=== PATIENT | male | born 1960 | race Caucasian/White ===

== ENCOUNTER 2020-12-09 21:00 | Inpatient (IN) | payer MEDICARE, OTHER ==
[~2020-12-09] VITALS: Ht 165.1 cm; Wt 86.8 kg
[2020-12-10 00:51] LABS: BASOPHIL 0.7 % (0-2); HCT 47.4 % (42.0-52.0); HGB 16.1 g/dl (13.2-18.0); LYMPHOCYTE 25.3 % (15-48); MCH 31.1 pg (25.0-31.0); MCV 91.7 fL (78.0-100.0); MONOCYTE 8.5 % (0-12); MPV 9.4 fL (6.0-9.5); NEUTROPHIL 62.2 % (41-80); NRBC 0; PLT 258 K/uL (150-400); RBC 5.17 M/uL (4.70-6.00); RDW 12.7 % (11.5-14.0); WBC 4.5 K/uL (4.0-10.5)
[2020-12-10 01:10] LABS: ALBUMIN 3.4 g/dL (3.4-5.0); BILIRUBIN - TOTAL 0.3 mg/dL (0.2-1.0); CREATININE 4.44 mg/dL (0.67-1.17); GLOBULIN (CALCULATION) 4.6 g/dL; POTASSIUM 3.8 mmol/L (3.5-5.1)
[2020-12-10 14:11] LABS: BILIRUBIN - TOTAL 0.2 mg/dL (0.2-1.0); CREATININE 3.4 mg/dL (0.67-1.17); GLOBULIN (CALCULATION) 4.1 g/dL; POTASSIUM 3.6 mmol/L (3.5-5.1); TOTAL PROTEIN 7.1 g/dL (6.4-8.2)
--- NOTE | 2020-12-10 14:41 | NUR ---
[address] HASKINS ABOUT HOME MEDS: ATTEMPTED TO CALL THE PATIENT'S PHARMACY [facility] IN [place], [place] [phone] WITH NO ANSWER WILL TRY AGAIN TOMMORROW THE PATIENT DOESNOT KNOW HIS MEDICATIONS. NO FAMILY HERE.
[2020-12-11 07:03] LABS: BASOPHIL 0.7 % (0-2); EOSINOPHIL 1.9 % (0-5); HCT 42.8 % (42.0-52.0); HGB 14.9 g/dl (13.2-18.0); MCH 31.2 pg (25.0-31.0); MCHC 34.8 g/dL (32.0-36.0); MCV 89.7 fL (78.0-100.0); MONOCYTE 7.7 % (0-12); MPV 9.2 fL (6.0-9.5); NEUTROPHIL 59.5 % (41-80); NRBC 0; PLT 267 K/uL (150-400); RBC 4.77 M/uL (4.70-6.00); RDW 12.7 % (11.5-14.0)
[2020-12-11 07:06] LABS: WBC 4.2 K/uL (4.0-10.5)
[2020-12-11 07:34] LABS: CREATININE 1.57 mg/dL (0.67-1.17); POTASSIUM 3.9 mmol/L (3.5-5.1)
== END 2020-12-11 12:45 | disposition home or self-care (01) | DRG 682 ==
LOC: FER 21:00 → FMS 12-10 03:35
PROVIDERS: Allergy & Immunology Allergy; Emergency Medicine; Nurse Practitioner; ADMIT Internal Medicine
PROC: 8E0ZXY6 Isolation (ICD-10-PCS; principal; 2020-12-10)
DX: N17.9 Acute kidney failure, unspecified (principal); U07.1 COVID-19; E86.0 Dehydration; E11.9 Type 2 diabetes mellitus without complications; E03.9 Hypothyroidism, unspecified; Z66 Do not resuscitate; E78.5 Hyperlipidemia, unspecified; F32.9 Major depressive disorder, single episode, unspecified; F41.9 Anxiety disorder, unspecified; M51.26 Other intervertebral disc displacement, lumbar region; Z85.038 Personal history of other malignant neoplasm of large intestine; Z79.4 Long term (current) use of insulin; Z79.890 Hormone replacement therapy; Z79.899 Other long term (current) drug therapy; Z90.49 Acquired absence of other specified parts of digestive tract
CPT/HCPCS: 36415; 71045; 73502; 80048; 80053; 82962; 84484; 85025; 93005; 94010; 94760; 94762; J2405; J7030; J7120; U0002

== ENCOUNTER 2021-07-20 12:52 | Emergency (ER) | payer MEDICARE, OTHER ==
[2021-07-20 13:50] LABS: BASOPHIL 0.8 % (0-2); EOSINOPHIL 1.6 % (0-5); HCT 39.5 % (42.0-52.0); HGB 13.4 g/dl (13.2-18.0); LYMPHOCYTE 13.6 % (15-48); MCH 32.1 pg (25.0-31.0); MCHC 33.9 g/dL (32.0-36.0); MCV 94.7 fL (78.0-100.0); MONOCYTE 4.4 % (0-12); MPV 9.2 fL (6.0-9.5); NEUTROPHIL 76.2 % (41-80); NRBC 0; PLT 444 K/uL (150-400); RBC 4.17 M/uL (4.70-6.00); WBC 11.3 K/uL (4.0-10.5)
[2021-07-20 14:10] LABS: ALBUMIN 2.4 g/dL (3.4-5.0); ALKALINE PHOSHATASE 220 U/L (46-116); ALT 31 U/L (16-63); AST 40 U/L (15-37); BILIRUBIN - TOTAL 0.4 mg/dL (0.2-1.0); BUN 8 mg/dL (7-18); BUN/CREAT RATIO (CALC) 7.8 RATIO; CHLORIDE 96 mmol/L (98-107); CO2 (BICARBONATE) 27 mmol/L (21-32); CREATININE 1.02 mg/dL (0.67-1.17); GLOBULIN (CALCULATION) 5.3 g/dL; GLUCOSE 286 mg/dL (74-106); LIPASE >2250 U/L (73-393); POTASSIUM 3.2 mmol/L (3.5-5.1); TOTAL PROTEIN 7.7 g/dL (6.4-8.2)
== END 2021-07-20 19:05 | disposition other institution (70) ==
LOC: FER 12:52
PROVIDERS: Emergency Medicine
DX: K85.90 Acute pancreatitis without necrosis or infection, unspecified (principal); K86.3 Pseudocyst of pancreas; I10 Essential (primary) hypertension; E11.9 Type 2 diabetes mellitus without complications; F17.210 Nicotine dependence, cigarettes, uncomplicated
CPT/HCPCS: 36415; 71045; 80053; 82553; 83690; 84484; 85025; 93005; G0480; J1170; J2405; J3480; J7030; Q9967